=== PATIENT | male | born 1990 | race Caucasian/White ===

== ENCOUNTER 2019-04-13 09:20 | Emergency (ER) | payer SELFPAY ==
--- NOTE | 2019-04-13 09:38 | ED Physician Documentation ---
Eye Problem - HISTORIAN Historian: patient - HPI Stated Complaint: left eye object in eye Chief Complaint: Eye Trauma Onset: days ago (1) Associated symptoms: pain, itching, redness Location: left eye Severity: moderate Apparent Injury: no Context: foreign body Where: home Further Comments: yes (he was nailing and felt part of the nail went into his left eye) - ROS CONST: no problems - PAST HX Past History: none Immunizations: tetanus Allergies/Adverse Reactions: Allergies Allergy/AdvReac Type Severity Reaction Status Date / Time No Known Allergies Allergy Verified 04/13/19 10:28 - SOCIAL HX Smoking History: non-smoker Alcohol Use: none Drug Use: none - FAMILY HX Family History: none - REVIEWED ASSESSMENTS Nursing Assessment Reviewed: Yes Vitals Reviewed: Yes Progress - Progress Progress: drops to numb instilled left eye Floracein used with no complaint Nothing visualized in eye Eye wash complete Eye Problem Physical Exam - Physical Exam General Appearance: no acute distress, alert Examined with Slit Lamp: Yes Visual Acuity: see nursing assessment Eyelids: nml inspection Conjunctiva and Sclera: No: exudate (L), foreign material (L), subconjunctival hemorrhage (L) Corneas: fluorescein dye uptake (L), examined with fluorescein (L) EOM: intact Pupils: equal Head/ENT: nml inspection Skin: nml color Neck/Back: nml inspection Respiratory: no resp distress CVS: reg rate & rhythm, heart sounds normal Abdomen: non-tender Neuro/Psych: oriented x3 Discharge Clincal Impression: Eye abrasion Qualifiers: Encounter type: initial encounter Laterality: left Qualified Code(s): S05.8X2A - Other injuries of left eye and orbit, initial encounter Referrals: Primary Doctor,No [Primary Care Provider] - 2 Days Comments: 1. DO no rub eye 2. Follow up with eye dr tomorrow 3. Return to ER for any increased concerns Condition: Stable Disposition: 01 HOME, SELF-CARE Decision to Admit: NO Date of Decison to Admit: 04/13/19 Decision Time: 10:12
[2019-04-13 09:45] VITALS: BP 125/82
[2019-04-13] MEDS: PROPARACAINE HCL 0.5% OPTH 15 ML BOTTLE OS ONE (09:50)
[2019-04-13] MEDS: FLUORESCEIN SODIUM 1 STRIP TEST OU ONE (10:00)
[2019-04-13] MEDS: OPTH IRRIGATION SOLUTION 120 ML BTL OS ONE (10:38)
[2019-04-13] MEDS: DIPH,PERTUSS(ACELL),TET VAC/PF 0.5 ML DISP.SYRIN IM ONE (10:39)
[2019-04-13] MEDS: PROPARACAINE HCL 0.5% OPTH 15 ML BOTTLE ONE (10:40)
== END 2019-04-13 10:20 | disposition home or self-care (01) ==
LOC: ED 09:20
DX: S00.212A Abrasion of left eyelid and periocular area, initial encounter (principal); W45.8XXA Other foreign body or object entering through skin, initial encounter; Y93.89 Activity, other specified
CPT/HCPCS: 90471; 90715; 99282; 99284; A9270-GY